=== PATIENT | female | born 1990 | race Caucasian/White ===

== ENCOUNTER 2023-03-13 00:16 | Emergency (ER) | payer BC ==
[~2023-03-13] VITALS: Ht 165.1 cm; Wt 84.1 kg
[2023-03-13 00:58] LABS: BASO # 0.01 K/mm3 (0.02-0.10); EOS # 0.21 K/mm3 (0.04-0.40); HEMATOCRIT 30.9 % (37.0-47.0); HEMOGLOBIN 9.5 g/dL (12.5-16.0); LYMPH# 2.37 K/mm3 (1.50-4.00); MEAN CELL VOLUME 87 fl (78-100); MEAN CORPUSCULAR HEMOGLOBIN 27 pg (27-31); MEAN CORPUSCULAR HGB CONC 31 g/dL (33-37); MEAN PLATELET VOLUME 9.1 fl (7.4-10.4); MONO # 0.61 K/mm3 (0.20-0.80); NEU # 7.39 K/mm3 (1.40-6.50); PLATELET COUNT 227 K/mm3 (130-400); RED BLOOD COUNT 3.56 M/mm3 (4.10-5.30); RED CELL DISTRIBUTION WIDTH 13.4 % (11.5-14.5); WHITE BLOOD COUNT 10.6 K/mm3 (4.8-10.8)
[2023-03-13 01:03] LABS: ALBUMIN 3.1 g/dL (3.5-5.0); POTASSIUM 3.8 mmol/L (3.5-5.1); SODIUM 141 mmol/L (136-145)
[2023-03-13 01:05] LABS: CALCIUM 8.8 mg/dL (8.3-10.5)
[2023-03-13 01:06] LABS: GLUCOSE 104 mg/dL (65-105); TOTAL PROTEIN 6.2 g/dL (6.4-8.3)
[2023-03-13 01:07] LABS: CARBON DIOXIDE 21 mmol/L (22-29)
[2023-03-13 01:08] LABS: TOTAL BILIRUBIN 0.2 mg/dL (0.2-1.2)
[2023-03-13 01:11] LABS: AST-SGOT 16 U/L (5-34)
[2023-03-13 01:12] LABS: ALT/SGPT 9 U/L (0-55); MAGNESIUM 1.63 mg/dL (1.60-2.60)
[2023-03-13 01:17] LABS: PH-URINE 6.5 (5.0 - 8.0); URINE APPEARANCE HAZY; URINE BILIRUBIN NEGATIVE (NEGATIVE); URINE COLOR YELLOW; URINE GLUCOSE NEGATIVE (NEGATIVE); URINE KETONE NEGATIVE (NEGATIVE); URINE NITRATE NEGATIVE (NEGATIVE); URINE PROTEIN(semi-quant) TRACE (NEGATIVE); URINE UROBILINOGEN NORMAL (NORMAL)
[2023-03-13 01:18] LABS: URINE BLOOD 250 ery/uL (NEGATIVE); URINE LEUKOCYTE ESTERASE 1+ (NEGATIVE)
[2023-03-13 01:19] LABS: TROPONIN-I < 0.030 ng/mL (<0.030)
[2023-03-13 02:07] VITALS: BP 121/71
== END 2023-03-13 02:07 | disposition home or self-care (01) ==
LOC: ED 00:16
PROVIDERS: Nurse Practitioner Family
DX: O90.81 Anemia of the puerperium (principal)

== ENCOUNTER 2023-03-13 10:10 | Emergency (ER) | payer BC ==
[~2023-03-13] VITALS: Ht 160 cm; Wt 88.2 kg
[2023-03-13 11:08] LABS: BASO # 0.03 K/mm3 (0.02-0.10); EOS # 0.33 K/mm3 (0.04-0.40); EOS % 2.8 % (1.0-5.0); HEMATOCRIT 30.8 % (37.0-47.0); HEMOGLOBIN 9.9 g/dL (12.5-16.0); LYMPH# 1.97 K/mm3 (1.50-4.00); MEAN CELL VOLUME 85 fl (78-100); MEAN CORPUSCULAR HEMOGLOBIN 27 pg (27-31); MEAN CORPUSCULAR HGB CONC 32 g/dL (33-37); MEAN PLATELET VOLUME 9.4 fl (7.4-10.4); MONO # 0.44 K/mm3 (0.20-0.80); NEU # 8.85 K/mm3 (1.40-6.50); PLATELET COUNT 227 K/mm3 (130-400); RED BLOOD COUNT 3.63 M/mm3 (4.10-5.30); RED CELL DISTRIBUTION WIDTH 13.2 % (11.5-14.5); WHITE BLOOD COUNT 11.6 K/mm3 (4.8-10.8)
[2023-03-13 11:13] LABS: ALBUMIN 3.2 g/dL (3.5-5.0); POTASSIUM 3.7 mmol/L (3.5-5.1)
[2023-03-13 11:14] LABS: CALCIUM 8.8 mg/dL (8.3-10.5)
[2023-03-13 11:15] LABS: TOTAL PROTEIN 6.3 g/dL (6.4-8.3)
[2023-03-13 11:17] LABS: TOTAL BILIRUBIN 0.2 mg/dL (0.2-1.2)
[2023-03-13 11:26] LABS: D-DIMER 1.48 mg/L FEU (0.15-0.50)
[2023-03-13 14:10] VITALS: BP 111/69
[2023-03-13 14:21] LABS: PROTHROMBIN TIME 9.7 SECONDS (9.0-12.0)
== END 2023-03-13 14:10 | disposition home or self-care (01) ==
LOC: ED 10:10
PROVIDERS: Physician Assistant
DX: O90.89 Other complications of the puerperium, not elsewhere classified (principal); R06.02 Shortness of breath; R79.89 Other specified abnormal findings of blood chemistry; R79.1 Abnormal coagulation profile; M54.2 Cervicalgia
CPT/HCPCS: Q9967

== ENCOUNTER → 2024-03-17 | Outpatient (CLI) | payer BC ==
[2024-03-17 08:56] LABS: BASO # 0.02 K/mm3 (0.02-0.10); EOS # 0.09 K/mm3 (0.04-0.40); EOS % 1.7 % (1.0-5.0); HEMOGLOBIN 13.8 g/dL (12.5-16.0); LYMPH# 1.55 K/mm3 (1.50-4.00); MEAN CELL VOLUME 90 fl (78-100); MEAN CORPUSCULAR HEMOGLOBIN 30 pg (27-31); MEAN CORPUSCULAR HGB CONC 33 g/dL (33-37); MEAN PLATELET VOLUME 9.2 fl (7.4-10.4); NEU # 3.38 K/mm3 (1.40-6.50); PLATELET COUNT 193 K/mm3 (130-400); RED BLOOD COUNT 4.67 M/mm3 (4.10-5.30); WHITE BLOOD COUNT 5.3 K/mm3 (4.8-10.8)
[2024-03-17 09:03] LABS: ALBUMIN 4.5 g/dL (3.5-5.0)
[2024-03-17 09:04] LABS: CALCIUM 9.4 mg/dL (8.3-10.5)
[2024-03-17 09:05] LABS: TOTAL PROTEIN 7.6 g/dL (6.4-8.3)
[2024-03-17 09:07] LABS: TOTAL BILIRUBIN 0.6 mg/dL (0.2-1.2)
== END ==
LOC: LAB 08:33
PROVIDERS: Nurse Practitioner
DX: Z13.1 Encounter for screening for diabetes mellitus (principal); E78.5 Hyperlipidemia, unspecified; I10 Essential (primary) hypertension